=== PATIENT | female | born 1950 | race Caucasian/White ===

== ENCOUNTER 2018-05-21 21:03 | Emergency (ER) | payer OTHER ==
[~2018-05-21] VITALS: Ht 154.9 cm; Wt 81.7 kg
[2018-05-21] MEDS ORDERED: OMEPRAZOLE40 MG PO (21:19)
[2018-05-21] MEDS ORDERED: HYDROCHLOROTHIA25 M2 PO (21:19)
[2018-05-21] MEDS ORDERED: GLUCOPHAGE1000 MG PO (21:20)
[2018-05-21] MEDS ORDERED: LISINOPRIL40 MG PO (21:20)
[2018-05-21] MEDS ORDERED: JANUVIA100 MG PO (21:20)
[2018-05-21] MEDS ORDERED: VICTOZA0.6 MG/0.1 SUBQ (21:21)
[2018-05-21] MEDS ORDERED: MOBIC15 MG PO (21:23)
[2018-05-21] MEDS ORDERED: MIRALAX17 GM PO (21:23)
[2018-05-21] MEDS ORDERED: CENTRUM SILVER1 EAC2 PO (21:24)
[2018-05-21] MEDS ORDERED: RED YEAST RICE600 MG PO (21:26)
[2018-05-21] MEDS ORDERED: DULCOLAX5 MG PO (21:26)
[2018-05-21] MEDS ORDERED: MAGOX 400400 MG (21:27)
[2018-05-21 21:33] LABS: URINE BILIRUBIN NEGATIVE (Negative); URINE BLOOD NEGATIVE (Negative); URINE CLARITY CLEAR; URINE COLOR YELLOW; URINE GLUCOSE-RANDOM NEGATIVE (Negative); URINE KETONES NEGATIVE (Negative); URINE NITRITE-REFLEX NEGATIVE (Negative); URINE PROTEIN NEGATIVE (Negative); URINE SPECIFIC GRAVITY <= 1.005 (1.005-1.030); URINE UROBILINOGEN 0.2 E.U./dl (0.2-1.0)
[2018-05-21 21:34] LABS: URINE LEUKOCYTES-REFLEX 2+ (Negative)
[2018-05-21 21:39] LABS: BACTERIA-REFLEX None Seen /HPF (None Seen); CASTS None Seen /LPF (None Seen); CRYSTALS None Seen /LPF (None Seen); SQUAMOUS NONE SEEN /LPF (0-3); URINE RBC None Seen /HPF (0-2); URINE WBC-REFLEX None Seen /HPF (0-5)
[2018-05-21] MEDS ORDERED: ROBAXIN500 MG PO (21:45)
[2018-05-21] MEDS ORDERED: IBU600 MG PO (21:45)
[2018-05-21 22:20] VITALS: BP 191/86
== END 2018-05-21 22:23 | disposition home or self-care (01) ==
LOC: M.ERS 21:03
PROVIDERS: Nurse Practitioner Family
DX: M54.31 Sciatica, right side (principal); E11.9 Type 2 diabetes mellitus without complications; I10 Essential (primary) hypertension; E78.00 Pure hypercholesterolemia, unspecified